=== PATIENT | male | born 1950 | race Caucasian/White ===

== ENCOUNTER → 2024-02-22 07:43 | Outpatient (REF) | payer MEDICARE, SELFPAY | LOC: RAD 07:43 | PROVIDERS: ATTENDING PHYSICIAN Surgery Vascular Surgery | DX: Z13.6 Encounter for screening for cardiovascular disorders (principal); I65.23 Occlusion and stenosis of bilateral carotid arteries | CPT/HCPCS: 76770; 93880 ==

== ENCOUNTER → 2025-05-14 07:30 | Outpatient (REF) | payer MEDICARE, SELFPAY | LOC: RAD 07:30 | PROVIDERS: ATTENDING PHYSICIAN Surgery Vascular Surgery; FAMILY PHYSICIAN Family Medicine | DX: I65.23 Occlusion and stenosis of bilateral carotid arteries (principal) | CPT/HCPCS: 93880 ==

== ENCOUNTER 2025-07-10 07:35 | Outpatient (RCR) | payer MEDICARE, SELFPAY ==
[2025-07-10 07:45] VITALS: BP 138/77
[2025-07-10] MEDS: SODIUM BICARBONATE 1150 MEQ IV (08:19)
== END 2025-07-24 23:59 | disposition home or self-care (01) ==
LOC: OID 07:35
PROVIDERS: ATTENDING PHYSICIAN Surgery Vascular Surgery
DX: I65.23 Occlusion and stenosis of bilateral carotid arteries (principal)
CPT/HCPCS: 70496; 70498; 96365; 96366; Q9967